=== PATIENT | female | born 1980 | race Caucasian/White ===

== ENCOUNTER 2018-06-26 08:30 | Outpatient (RCR) | payer BC | END 2018-08-15 | disposition home or self-care (01) | LOC: PT | DX: Z47.89 Encounter for other orthopedic aftercare (principal) ==

== ENCOUNTER → 2020-10-14 | Outpatient (CLI) | payer BC | LOC: MAMMO 08:30 | DX: Z12.31 Encounter for screening mammogram for malignant neoplasm of breast (principal) ==

== ENCOUNTER → 2023-10-11 | Outpatient (CLI) | payer BC | LOC: MAMMO 14:52 | DX: Z12.31 Encounter for screening mammogram for malignant neoplasm of breast (principal) ==